=== PATIENT | female | born 1995 | race Caucasian/White ===

== ENCOUNTER → 2017-10-01 | Outpatient (REF) | payer BC ==
[2017-10-01 13:28] LABS: PLATELET COUNT, AUTOMATED 323 K/uL (150-450)
== END ==
PROVIDERS: ATTEND Nurse Practitioner Family
DX: R10.9 Unspecified abdominal pain (principal)
CPT/HCPCS: 82040; 82247; 82310; 82374; 82435; 82565; 82947; 84075; 84132; 84155; 84295; 84450; 84460; 84520; 85025

== ENCOUNTER → 2018-02-12 | Outpatient (CLI) | payer BC ==
[~2018-02-12] MED LIST: IOPAMIDOL 76% 75 ML INFUS BTL 75 ML ONE
--- NOTE | 2018-02-12 10:09 | RADIOLOGY IMAGING REPORT ---
FACILITY: [facility] - [place] PATIENT NAME: Verónica Hewitt : 1995 MR: [id number] V: [id number] EXAM DATE: ORDERING PHYSICIAN: NUNU BOURGEOIS TECHNOLOGIST: [place] [facility] [place]: Verónica Hewitt : 1995 Visit/Account:[id number] Date of Sevice: 02/12/2018 ABDOMEN/PELVIS WITH CONTRAST HISTORY: Abdomen pain since September 2017, right lower quadrant TECHNIQUE: Following administration of IV contrast contiguous axial images acquired through the abdom en/pelvis. Coronal and sagittal reformatting also performed. Dose Lowering Technique One of the following dose optimization techniques was utilized in the performance of this exam: Autom ated exposure control; adjustment of the mA and/or kV according to the patient's size; or use of an i terative reconstruction technique. Specific details can be referenced in the facility's radiology C T exam operational policy. CONTRAST: 75 mL Isovue-[id number] COMPARISON: None. FINDINGS: Visualized lung bases: Negative. Hepatobiliary: Negative. Spleen: Negative. Adrenals: Negative. Pancreas: Negative Kidneys ureters or bladder: There is mild fullness of left renal collecting system although no obstru cting calculi identified Genitalia: There are pelvic varicosities bilaterally. GI: The appendix is not definitively seen although no inflammatory changes seen surrounding the cecu m Vessels/spaces/nodes: Of incidental note of the common hepatic artery and splenic artery take separa te origins from the abdominal aorta as opposed to a common celiac trunk There are multiple small mesenteric lymph nodes Bones/soft tissues: There is a small umbilical hernia containing fat Additional findings: None pertinent. 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 If further imaging is desired pelvic ultrasound may be helpf ul This mild fullness the left renal collecting system although no obstructing calculi are identified. This could be physiologic although clinical correlation suggested Report Dictated By: Courtney Rico MD at 02/12/2018 9:53 AM Report E-Signed By: Courtney Rico MD at 02/12/2018 10:06 AM [id number]:[email or web address]
== END ==
LOC: CT 00:30
PROVIDERS: ATTEND Family Medicine
DX: R39.9 Unspecified symptoms and signs involving the genitourinary system (principal)
CPT/HCPCS: 74177; Q9967

== ENCOUNTER → 2018-02-27 | Outpatient (CLI) | payer BC ==
--- NOTE | 2018-02-27 09:04 | RADIOLOGY IMAGING REPORT ---
FACILITY: [facility] - [place] PATIENT NAME: Verónica Hewitt : 1995 MR: [id number] V: [id number] EXAM DATE: ORDERING PHYSICIAN: NUNU BOURGEOIS TECHNOLOGIST: Location: [facility] - [place] Patient: Verónica Hewitt : 1995 Visit/Account:[id number] Date of Sevice: 02/27/2018 Technique: ABDOMEN COMPLETE HISTORY: Right upper quadrant pain Comparison: None Technique: Multiple grayscale, color and Doppler sonographic images were obtained for an ultrasound o f the right upper quadrant. Findings: Liver is normal in size, contour, and echotexture and measures 14 cm in length. There is normal hepat opedal portal venous flow. No adjacent ascites. Gallbladder wall thickness is 2 mm with no evidence of shadowing stone or sludge within the gallbladd er lumen. Negative sonographic Sanchez's sign reported by the technologist. Common duct measures 5 mm in maximum diameter with no evidence of shadowing stone. Imaged portions of the pancreas are unremarkable. Abdominal aorta and IVC are patent and unremarkable. The right kidney is normal in size, contour, and echotexture measuring 11.0 cm x 3.2 cm x 4.4 cm. IMPRESSION: 1. Normal right upper quadrant ultrasound. Report Dictated By: Chip De La O DO at 02/27/2018 8:51 AM Report E-Signed By: Chip De La O DO at 02/27/2018 8:59 AM WSN:[id number]
== END ==
LOC: US 01:46
PROVIDERS: ATTEND Family Medicine
DX: R10.31 Right lower quadrant pain (principal)
CPT/HCPCS: 76700